=== PATIENT | male | born 1980 | race Caucasian/White ===

== ENCOUNTER 2019-12-19 14:06 | Emergency (ER) | payer SELFPAY ==
[~2019-12-19] VITALS: Ht 185.4 cm; Wt 108.9 kg
--- NOTE | 2019-12-19 14:06 | NUR ---
Patient BIBA BLS, transferred to bed 2. RN evaluating patient at bedside.
--- NOTE | 2019-12-19 14:15 | NUR ---
BIBA FROM HOME C/O N/V ACCOMPANIED BY ABDOMINAL PAIN, DENIES DIARRHEA .PT AOX4 , AFIBRILE , AMBULATORY WITH STEADY GAIT , MOIST MUCUS MEMBRANE. PMHX FATTY LIVER
[2019-12-19 14:16] VITALS: BP 148/78
[2019-12-19] MEDS ORDERED: ONDANSETRON 4 MG/2 ML VIAL IVP ONE (15:05)
[2019-12-19] MEDS ORDERED: KETOROLAC 30 MG/ML VIAL IVP ONE (15:05)
--- NOTE | 2019-12-19 15:47 | NUR ---
dr arias at bedside evaluating pt.
[2019-12-19] MEDS ORDERED: MORPHINE SULFATE 4 MG/ML SYR IVP ONE ×2 (15:50→16:50)
[2019-12-19 16:13] LABS: BASOPHILS # (AUTO) 0.2 K/uL (0.00-0.22); BASOPHILS % (AUTO) 1.2 % (0.0-2.0); EOSINOPHILS % (AUTO) 0.2 % (0.0-4.0); HEMATOCRIT 48.2 % (36-52); HEMOGLOBIN 16.1 g/dL (12.0-18.0); LYMPHOCYTES # (AUTO) 0.8 K/uL (2.0-11.5); LYMPHOCYTES % (AUTO) 6.1 % (20.5-51.1); MEAN CORPUSCULAR HEMOGLOBIN 31 pg (27-31); MEAN CORPUSCULAR HGB CONC 34 g/dL (33-37); MEAN CORPUSCULAR VOLUME 92.8 fL (80-94); MONOCYTES # (AUTO) 0.4 K/uL (0.8-1.0); MONOCYTES % (AUTO) 3.3 % (1.7-9.3); NEUTROPHILS % (AUTO) 89.2 % (42.2-75.2); PLATELET COUNT (AUTO) 273 K/uL (140-450); RED BLOOD CELL COUNT(AUTO) 5.19 MIL/uL (4.20-6.10); RED CELL DISTRIBUTION WIDTH 14.7 % (11.6-13.7); WHITE BLOOD COUNT (AUTO) 13.5 K/uL (4.8-10.8)
[2019-12-19 17:36] LABS: ALBUMIN 4.6 g/dL (3.4-5.0); ANION GAP 22.5 (8-16); CARBON DIOXIDE 21.6 mmol/L (21-32); CREATININE 1.2 mg/dL (0.6-1.3); POTASSIUM 4.1 mmol/L (3.5-5.1); TOTAL BILIRUBIN 0.4 mg/dL (0.0-1.0)
[2019-12-19 18:29] VITALS: BP 148/78
--- NOTE | 2019-12-19 18:30 | NUR ---
Patient discharged with v/s stable. Written and verbal after care instructions given and explained regarding abdominal pain . Patient alert, oriented and verbalized understanding of instructions. Ambulatory with steady gait. All questions addressed prior to discharge. ID band removed. Patient advised to follow up with PMD. Rx of motrin, zofran and norco given. Patient educated on indication of medication including possible reaction and side effects. Opportunity to ask questions provided and answered.
== END 2019-12-19 18:30 | disposition home or self-care (01) ==
LOC: MED 14:06
DX: R10.13 Epigastric pain (principal); R11.2 Nausea with vomiting, unspecified; F12.10 Cannabis abuse, uncomplicated
CPT/HCPCS: 36415; 80053; 83690; 85025; 96374; 96375; 96376; 99284; J1885; J2270; J2405

== ENCOUNTER 2023-09-27 17:17 | Emergency (ER) | payer SELFPAY ==
[~2023-09-27] VITALS: Ht 182.9 cm; Wt 122.5 kg
[2023-09-27] MEDS: NACL 0.9% 1,000 ML IV ONE (17:32)
[2023-09-27 17:39] VITALS: BP 158/103; PULSE 77; RESP 24; TEMP 98.3; O2SAT 99
[2023-09-27] MEDS: LORazepam 2 MG/ML VIAL IVP ONE ×2 (17:43)
[2023-09-27] MEDS: ONDANSETRON 4 MG/2 ML VIAL IVP ONE (17:43)
[2023-09-27] MEDS ORDERED: KETOROLAC 30 MG/ML VIAL IVP ONE (18:55)
[2023-09-27] MEDS: MORPHINE SULFATE 4 MG/ML SYR IVP ONE (19:06)
[2023-09-27] MEDS ORDERED: IBUP-2213 PO (19:19)
[2023-09-27] MEDS ORDERED: ONDA8TAB87 PO (19:19)
[2023-09-27] MEDS ORDERED: LOPE-289 PO (19:19)
[2023-09-27 19:40] VITALS: BP 179/103; PULSE 74; RESP 20; O2SAT 98
[2023-09-27] MEDS ORDERED: ACET-8905 PO (20:08)
== END 2023-09-27 20:13 | disposition home or self-care (01) ==
LOC: MED 17:17
DX: R10.13 Epigastric pain (principal); R11.2 Nausea with vomiting, unspecified; R19.7 Diarrhea, unspecified; Z79.899 Other long term (current) drug therapy
CPT/HCPCS: 93005; 96361; 96374; 96375; 99284; J1885; J2060; J2270; J2405; J7030